=== PATIENT | male | born 1950 | race Caucasian/White ===

== ENCOUNTER 2016-06-17 09:20 | Inpatient (IN) | payer MEDICAID ==
[~2016-06-17] VITALS: Ht 177.8 cm; Wt 92.5 kg
[2016-06-17 09:30] VITALS: BP 156/87; PULSE 60; RESP 18; TEMP 97; O2SAT 100
--- NOTE | 2016-06-17 09:30 | NUR ---
Patient to ER bed 04 to gown for evaluation. Side rails up. Report given to Bharat RENDON.
--- NOTE | 2016-06-17 09:40 | NUR ---
BIB self for lower abd cramping and discomfort x2 days. Last BM 2 days ago. Denies n/v at this time. Denies disuria, denies chest pain, denies shortness of breath. Abdomen soft, tender in lower quadrants.
--- NOTE | 2016-06-17 09:42 | NUR ---
Pt states that he hasn't taken his home medication in a few days, needs refill: Allopurinol, lasix, metoprolol
[2016-06-17] MEDS ORDERED: FURO-150 PO (09:46)
[2016-06-17] MEDS ORDERED: ALLO100T PO (09:46)
[2016-06-17] MEDS ORDERED: METO25TA3 PO (09:46)
--- NOTE | 2016-06-17 09:46 | NUR ---
Medication reconciliation completed with information provided by patient. Unknown doses
--- NOTE | 2016-06-17 09:50 | NUR ---
Dr. Mccormick at bedside for evaluation
[2016-06-17] MEDS ORDERED: NACL 0.9% 1,000 ML IV ONE (09:51)
--- NOTE | 2016-06-17 09:55 | NUR ---
Phleb at bedside for blood draw using 2 pt identifiers.
[2016-06-17 10:13] LABS: BASOPHILS # (AUTO) 0.5 K/uL (0.0-0.2); BASOPHILS % (AUTO) 3.5 % (0.0-2.0); EOSINOPHILS # (AUTO) 0.1 K/uL (0.0-0.4); EOSINOPHILS % (AUTO) 0.7 % (0.0-4.0); HEMATOCRIT 44.9 % (36-54); HEMOGLOBIN 14.4 g/dL (14.0-18.0); LYMPHOCYTES # (AUTO) 1.4 K/uL (1.0-5.5); MEAN CORPUSCULAR HEMOGLOBIN 28 pg (27-31); MEAN CORPUSCULAR HGB CONC 32 % (32-36); MEAN CORPUSCULAR VOLUME 88 fL (79.0-98.0); MONOCYTES % (AUTO) 7.3 % (1.7-9.3); NEUTROPHILS # (AUTO) 10.5 K/uL (1.8-7.7); NEUTROPHILS % (AUTO) 78.5 % (40.0-70.0); RED BLOOD CELL COUNT(AUTO) 5.12 MIL/uL (4.2-6.2); RED CELL DISTRIBUTION WIDTH 15.8 % (9.0-15.0); WHITE BLOOD COUNT (AUTO) 13.5 K/uL (4.8-10.8)
--- NOTE | 2016-06-17 10:17 | NUR ---
Off unit for radiology via wheelchair UA sent to lab
[2016-06-17 10:22] LABS: CALCIUM 9.9 mg/dL (8.4-11.0); CREATININE 1.99 mg/dL (0.55-1.30); POTASSIUM 4.8 mmol/L (3.5-5.1)
[2016-06-17 10:25] LABS: PROTHROMBIN TIME 10.4 SECS (9.5-12.5)
--- NOTE | 2016-06-17 10:26 | NUR ---
Back from radiology
[2016-06-17 10:27] LABS: ALBUMIN 3.6 g/dL (3.4-4.8); TOTAL BILIRUBIN 0.8 mg/dL (0.0-1.0)
--- NOTE | 2016-06-17 10:33 | NUR ---
IVF infusing to lt FA with no s/sx of infiltration. Pt resting semi fowlers, warm blankets provided, TV turned on. Pt needs met at this time.
[2016-06-17 10:38] LABS: BILIRUBIN,URINE NEGATIVE (NEGATIVE); CLARITY/URINE CLEAR (CLEAR); COLOR,URINE YELLOW (YELLOW); GLUCOSE,URINE NEGATIVE (NEGATIVE); KETONES,URINE NEGATIVE (NEGATIVE); LEUKOCYTE ESTERASE ,URINE NEGATIVE (NEGATIVE); NITRITE, URINE NEGATIVE (NEGATIVE); PROTEIN URINE 1+ (NEGATIVE); UROBILINOGEN,URINE 0.2 (0.2-1.0)
[2016-06-17 10:40] LABS: BLOOD, URINE TRACE (NEGATIVE)
[2016-06-17 10:44] LABS: PLATELET COUNT (AUTO) 235 K/uL (130-430)
[2016-06-17 10:50] LABS: BACTERIA,URINE FEW /HPF (None Seen); MUCUS,URINE 1+ /LPF (None Seen); RBC,URINE 0-3 /HPF (0-3); WBC,URINE 0-3 /HPF (0-3)
[2016-06-17] MEDS ORDERED: metroNIDAZOLE 500 mg/NS 100 ML IV ONE (11:00)
--- NOTE | 2016-06-17 11:29 | NUR ---
Patient will be admitted to care of Dr. Gutierrez. Admitted to med/surg unit. Will go to room 100. Belongings list completed. Summary report printed. Report given to RN at bedside. Transfer to med/surg via gurney. Licensed nurse present. IV present no signs or symptoms of infiltration.
[2016-06-17] MEDS ORDERED: MORPHINE 2 MG/ML INJ. SYRINGE IVP PRN (11:30)
[2016-06-17] MEDS ORDERED: ONDANSETRON HCL 4 MG/2 ML VIAL IVP PRN (11:30)
--- NOTE | 2016-06-17 11:40 | NUR ---
ADMISSION: The patient, CHIP MORALES, 65 y/o, M admitted by WYATT JUSTICE MD, was given written information regarding hospital policies, unit procedures and contact persons.
[2016-06-17 11:48] VITALS: BP 162/101; PULSE 76; RESP 17; TEMP 97.2; O2SAT 98
--- NOTE | 2016-06-17 11:50 | NUR ---
GI consult Order received for a consult with GI-Dr Taylor tennis professional. Spoke with Halie at his office. Will follow up as needed.
[2016-06-17] MEDS ORDERED: PANTOPRAZOLE SODIUM 40 MG/VIAL (PROTONIX) IVP ONE (12:00)
--- NOTE | 2016-06-17 12:15 | NUR ---
Routine Patient resting in bed with no acute distress. Patient stable.
[2016-06-17] MEDS: NACL 0.9% 1,000 ML IV SCH ×2 (14:08→21:15)
[2016-06-17] MEDS: metroNIDAZOLE 500 mg/NS 100 ML IV SCH ×2 (14:10→22:21)
--- NOTE | 2016-06-17 14:25 | NUR ---
Routine Scheduled IV ABX and IVP meds given. Patient resting in bed with son at bedside. Denies pain at this time. Patient stable at this time.
--- NOTE | 2016-06-17 16:35 | NUR ---
Routine Patient asleep. No distress noted at this time.
[2016-06-17] MEDS ORDERED: LEVOFLOXACIN 250 MG/D5W 50 ML IV ONE (18:00)
--- NOTE | 2016-06-17 18:45 | NUR ---
Routine Patient stable since transfer from ER.
[2016-06-17 19:04] VITALS: BP 145/83; PULSE 73; RESP 18; TEMP 97.9; O2SAT 98
--- NOTE | 2016-06-17 19:04 | NUR ---
INITIAL ROUNDS RECVD PT IN BED,A/A/O X4.NO C/O PAIN AND NO SOB NOTED.IV NOTED TO L F/A G 20 NO INFILTRATE WITH GOOD BLOOD RETURN.ALL EXTREMITIES ARE STRONG, AMBULATORY.DISCUSSED PLAN OF CARE WITH PT AND VERBALIZED UNDERSTANDING.CALL LIGHT WITHIN REACH,WILL CONT TO MONITOR.
[2016-06-17] MEDS ORDERED: CIPROFLOXACIN LACT 400 MG/D5W 200 ML IV SCH (21:00)
--- NOTE | 2016-06-17 21:04 | NUR ---
ROUNDS PT IS AWAKE @ THIS TIME.NO C/O PAIN AND NO SOB NOTED.CALL LIGHT WITHIN REACH,WILL CONT TO MONITOR.
[2016-06-17] MEDS: LACTOBACILLUS RHAMNOSUS GG 1 CAP CAPSULE PO SCH (21:14)
--- NOTE | 2016-06-17 23:04 | NUR ---
ROUNDS PT IS COMFORTABLY SLEEPING @ THIS TIME.NO C/O PAIN AND NO RESPI DISTRESS NOTED.CALL LIGHT WITHIN REACH,WILL CONT TO MONITOR.
[2016-06-18 00:56] VITALS: BP 154/75; PULSE 76; RESP 16; TEMP 98.2; O2SAT 98
--- NOTE | 2016-06-18 01:04 | NUR ---
ROUNDS PT IS ASLEEP @ THIS TIME.NO S/S OF PAIN OR DISTRESS NOTED.CALL LIGHT WITHIN REACH,WILL CONT TO MONITOR.
--- NOTE | 2016-06-18 03:04 | NUR ---
ROUNDS PT IS COMFORTABLY SLEEPING @ THIS TIME.NO C/O PAIN AND NO RESPI DISTRESS NOTED.CALL LIGHT WITHIN REACH,WILL CONT TO MONITOR.
[2016-06-18 04:07] VITALS: BP 130/70; PULSE 72; RESP 16; TEMP 98.6; O2SAT 97
--- NOTE | 2016-06-18 05:04 | NUR ---
ROUNDS PT IS ASLEEP COMFORTABLY @ THIS TIME.NO C/O PAIN AND NO SOB NOTED.CALL LIGHT WITHIN REACH,WILL CONT TO MONITOR.
[2016-06-18] MEDS: metroNIDAZOLE 500 mg/NS 100 ML IV SCH ×3 (06:03→22:00)
[2016-06-18] MEDS: NACL 0.9% 1,000 ML IV SCH ×2 (06:03→16:05)
--- NOTE | 2016-06-18 06:51 | NUR ---
FINAL ROUNDS PT IS SLEEPING @ THIS TIME.NO S/S OF PAIN AND NO DISTRESS NOTED.V/S ARE WNL.ALL NEEDS MET AND ANTICIPATED BY NOC NURSES.BED @ LOW POSITION WITH SIDE RAILS UP X3.CALL LIGHT WITHIN REACH,ENDORSED
[2016-06-18 06:56] LABS: BASOPHILS % (AUTO) 0.5 % (0.0-2.0); EOSINOPHILS # (AUTO) 0.3 K/uL (0.0-0.4); EOSINOPHILS % (AUTO) 2.8 % (0.0-4.0); HEMATOCRIT 36.9 % (36-54); HEMOGLOBIN 12.3 g/dL (14.0-18.0); LYMPHOCYTES # (AUTO) 1.4 K/uL (1.0-5.5); LYMPHOCYTES % (AUTO) 14.4 % (20.5-51.5); MEAN CORPUSCULAR HEMOGLOBIN 29 pg (27-31); MEAN CORPUSCULAR HGB CONC 33 % (32-36); MEAN CORPUSCULAR VOLUME 88 fL (79.0-98.0); MONOCYTES # (AUTO) 0.9 K/uL (0.0-1.0); MONOCYTES % (AUTO) 9.1 % (1.7-9.3); NEUTROPHILS # (AUTO) 6.9 K/uL (1.8-7.7); NEUTROPHILS % (AUTO) 73.2 % (40.0-70.0); PLATELET COUNT (AUTO) 190 K/uL (130-430); RED BLOOD CELL COUNT(AUTO) 4.22 MIL/uL (4.2-6.2); RED CELL DISTRIBUTION WIDTH 15.8 % (9.0-15.0); WHITE BLOOD COUNT (AUTO) 9.5 K/uL (4.8-10.8)
[2016-06-18 07:27] LABS: ALBUMIN 2.8 g/dL (3.4-4.8); CALCIUM 9.2 mg/dL (8.4-11.0); CREATININE 1.84 mg/dL (0.55-1.30); POTASSIUM 4.7 mmol/L (3.5-5.1); TOTAL BILIRUBIN 0.8 mg/dL (0.0-1.0); TOTAL PROTEIN, SERUM 7.3 g/dL (6.4-8.3)
--- NOTE | 2016-06-18 07:30 | NUR ---
AM ROUNDS PATIENT RESTING BED, AWAKE, ALERT AND ORIENTED X4 ,DENIES PAIN AT THIS TIME, ASSESSMENT COMPLETE, EDUCATED THE PATIENT ROLL RECLAIMER LIGHT SYSTEM AND TO CALL FOR ANY ASSISTANCE, PATIENT VERBALIZED UNDERSTANDING, NO OTHER NEEDS AT THIS TIME, BED IN LOWEST POSITION, THREE SIDE RAILS UP, CALL LIGHT NEXT TO THE PATIENT'S HAND, FALL PRECAUTIONS IN PLACE.
[2016-06-18 08:00] VITALS: BP 151/102; PULSE 74; RESP 16; TEMP 98.7; O2SAT 96
[2016-06-18] MEDS: LACTOBACILLUS RHAMNOSUS GG 1 CAP CAPSULE PO SCH ×2 (08:55→21:00)
--- NOTE | 2016-06-18 08:55 | NUR ---
RN ROUNDS PATIENT RESTING IN BED, AWAKE, DENIES PAIN, EDUCATED THE PATIENT ON MEDICATIONS AND POTENTIAL SIDE EFFECTS, PATIENT VERBALIZED UNDERSTANDING AND TOLERATED WELL, NO OTHER NEEDS AT THIS TIME, BED IN LOWEST POSITION, THREE SIDE RAILS UP, FALL PRECAUTIONS IN PLACE, CALL LIGHT NEXT TO THE PATIENT'S HAND.
[2016-06-18] MEDS ORDERED: PANTOPRAZOLE SODIUM 40 MG/VIAL (PROTONIX) IVP SCH (09:00)
[2016-06-18] MEDS ORDERED: METOPROLOL SUCCINATE 25 MG TAB.SR.24H (TOPROL XL) PO SCH (09:00)
--- NOTE | 2016-06-18 11:07 | NUR ---
RN ROUNDS PATIENT RESTING IN BED, AWAKE, DENIES PAIN AT THIS TIME , NO OTHER NEEDS AT THIS TIME, BED IN LOWEST POSITION, THREE SIDE RAILS UP, FALL PRECAUTIONS IN PLACE, CALL LIGHT NEXT TO THE PATIENT'S HAND.
--- NOTE | 2016-06-18 11:58 | NUR ---
DR MK TABARES CHANGED PATIENT DIET FROM CLEAR LIQUIDS TO FULL LIQUIDS, WILL FOLLOW UP.
[2016-06-18 12:33] VITALS: BP 149/71; PULSE 69; RESP 18; TEMP 98.1; O2SAT 98
--- NOTE | 2016-06-18 13:28 | NUR ---
RN ROUNDS PATIENT RESTING IN BED, CALLING DUE TO IV PUMP BEEPING, IV PUMP FIXED AND PATIENT EDUCATED ON IV ANTIBIOTIC AND POTENTIAL SIDE EFFECTS, PATIENT VERBALIZED UNDERSTANDING, IV SITE IS PATENT WITH NO SIGNS OF INFILTRATION AT THIS TIME, WILL CONTINUE TO MONITOR THE PATIENT, NO OTHER NEEDS AT THIS TIME, BED IN LOWEST POSITION, THREE SIDE RAILS UP, FALL PRECAUTIONS IN PLACE, CALL LIGHT IN THE PATIENT'S HAND.
--- NOTE | 2016-06-18 14:44 | NUR ---
DR VINH TABARES STATED TO INCREASE DIET TO SOFT, BLAND DIET FOR DINNER AND IF PATIENT DOES WELL/TOLERATES, OK TO DISCHARGE HOME, WILL FOLLOW UP.
--- NOTE | 2016-06-18 16:37 | NUR ---
RN ROUNDS PATIENT RESTING IN BED, DENIES PAIN, IV FLUID BAG REPLACED AND RATE ADJUSTED PER DR JUSTICE'S ORDERS, NO OTHER NEEDS AT THIS TIME, IV SITE IS PATENT WITH NO SIGNS OF INFILTRATION AT THIS TIME, BED IN LOWEST POSITION, TWO SIDE RAILS UP, FALL PRECAUTIONS IN PLACE, CALL LIGHT NEXT TO THE PATIENT'S HAND, ENCOURAGED PATIENT TO AMBULATE TOLERATED.
[2016-06-18 16:58] VITALS: BP 140/70; PULSE 72; RESP 18; TEMP 97.9; O2SAT 98
--- NOTE | 2016-06-18 17:43 | NUR ---
RN ROUNDS PATIENT RESTING IN BED, DENIES PAIN, EATING DINNER, WILL CONTINUE TO MONITOR THE PATIENT AND ENDORSE DISCHARGE PLAN TO NOC SHIFT NURSE NEEDED, PATIENT HAS NO OTHER NEEDS AT THIS TIME, BED IN LOWEST POSITION, THREE SIDE RAILS UP, FALL AND ASPIRATION PRECAUTIONS IN PLACE, CALL LIGHT NEXT TO THE PATIENT'S HAND.
--- NOTE | 2016-06-18 18:22 | NUR ---
CLOSING NOTES PATIENT RESTING IN BED, EYES CLOSED, BREATHING IS EVEN AND UNLABORED, NO SIGNS OF DISTRESS AT THIS TIME, ALL NEEDS MET, WILL ENDORSE REPORT TO NOC SHIFT NURSE, BED IN LOWEST POSITION, TWO SIDE RAILS UP, FALL PRECAUTIONS IN PLACE, CALL LIGHT NEXT TO THE PATIENT'S HAND.
--- NOTE | 2016-06-18 20:05 | NUR ---
Opening note received report from day shift RN. Patient is alert and oriented X4, no complaints of pain, bed is in low position, call light in reach, frequent visual checks to be made, continue to monitor
--- NOTE | 2016-06-18 20:33 | NUR ---
paged for Dr Pino, dialed . s/w Sonja.
[2016-06-18] MEDS ORDERED: LEVOFLOXACIN 250 MG/D5W 50 ML IV SCH (21:00)
[2016-06-18 21:11] VITALS: BP 144/74; PULSE 66; RESP 17; TEMP 98.1; O2SAT 98
--- NOTE | 2016-06-18 21:25 | NUR ---
paged for Dr Pino, dialed . s/w Valorie.
[2016-06-18] MEDS ORDERED: METR500T PO (21:38)
[2016-06-18] MEDS ORDERED: LEVO500T20 PO (21:38)
[2016-06-18] MEDS ORDERED: FAMO20TA98 PO (21:40)
--- NOTE | 2016-06-18 21:55 | NUR ---
Patient discharged Discharge instructions reviewed with patient concerning follow up appointments, medications, and signs of complications. Patient verbalizes understanding, patient has all his belongings and was walked out to [facility] where he was accompanied by personal friend to be transported home in private auto. Patient walked to the door by himself with a steady gait. discharged 21:53 pm
== END 2016-06-18 21:55 | disposition home or self-care (01) | DRG 244 ==
LOC: SED 09:20 → SMU 11:13
PROVIDERS: ADMIT Internal Medicine; ATTEND Internal Medicine
DX: K57.32 Diverticulitis of large intestine without perforation or abscess without bleeding (principal); N17.9 Acute kidney failure, unspecified; I12.9 Hypertensive chronic kidney disease with stage 1 through stage 4 chronic kidney disease, or unspecified chronic kidney disease; D72.829 Elevated white blood cell count, unspecified; I25.10 Atherosclerotic heart disease of native coronary artery without angina pectoris; K80.20 Calculus of gallbladder without cholecystitis without obstruction; N40.0 Benign prostatic hyperplasia without lower urinary tract symptoms; M10.9 Gout, unspecified; Z95.1 Presence of aortocoronary bypass graft; N18.9 Chronic kidney disease, unspecified
CPT/HCPCS: 36415; 71020-TC; 76770; 80053; 81000-TC; 83690-TC; 83735-TC; 84550-TC; 85025; 85610-TC; 85730-TC; 87040-TC; 96361; 96365; 99285; C9113; J0744; J1956; J3490; J7030

== ENCOUNTER 2016-11-15 09:46 | Emergency (ER) | payer MEDICAID ==
[~2016-11-15] VITALS: Ht 177.8 cm; Wt 90.7 kg
[~2016-11-15 09:46] MED LIST: FAMO20TA98 PO; LEVO500T20 PO; METO25TA3 PO; METR500T PO
[2016-11-15 09:56] VITALS: BP_SYST 150
[2016-11-15] MEDS ORDERED: IBUPROFEN 600 MG TABLET PO ONE (10:00)
--- NOTE | 2016-11-15 10:00 | NUR ---
Dr. Torres assessing pt. in triage.
--- NOTE | 2016-11-15 10:00 | NUR ---
Pt placed to ER bed 04, to regina, report given to JULIETA Goldman.
--- NOTE | 2016-11-15 10:05 | NUR ---
PTPRESESNT TO ED S/P MECH FALLNO ACUTE DISTRESS NOTED.PT AMBULATING W/ SLIGHT LIMP GAIT STEADY.PT HAS CARDIAC H/O DENIES SOB OR CP.
--- NOTE | 2016-11-15 10:20 | NUR ---
Patient transported to radiology via RAD DEPT, accompanied byRAD STAFF
[2016-11-15] MEDS ORDERED: ACETAMINOPHEN 325 MG TABLET PO ONE (10:45)
--- NOTE | 2016-11-15 10:45 | NUR ---
PT MEDCIATED FOR PAIN.PT TOLERATED WELL.
--- NOTE | 2016-11-15 10:50 | NUR ---
R KNEE IMMOBILIZER APPLIED.PT TOLERATED WELL.
[2016-11-15 11:00] VITALS: BP_SYST 150
--- NOTE | 2016-11-15 11:00 | NUR ---
Patient given written and verbal discharge instructions and verbalizes understanding. ER MD discussed with patient the results and treatment provided. Patient in stable condition. ID arm band removed. IV catheter removed intact and dressing applied, no active bleeding. Rx of TYLENOL,ZOFRN,TRAMADOL given. Patient educated on pain management and to follow up with PMD. Pain Scale 2. Opportunity for questions provided and answered.
== END 2016-11-15 11:00 | disposition home or self-care (01) ==
LOC: SED 09:46
DX: M25.561 Pain in right knee (principal); Z98.890 Other specified postprocedural states
CPT/HCPCS: 73564; 99284